=== PATIENT | male | born 1950 | race Caucasian/White ===

== ENCOUNTER 2017-06-04 06:22 | Emergency (ER) | payer OTHER ==
[~2017-06-04] VITALS: Ht 167.6 cm; Wt 94.1 kg
[~2017-06-04 06:22] MED LIST: ADVAIR 250/501 DISK IH; ATORVASTATIN CA20 MG PO; BUTALB-APAP-CA1 EACH PO; CELEXA40 MG PO; DOCUSATE SODIU100 MG PO; EXALGO8 MG PO; GRALISE300 MG PO; LIPITOR80 MG PO; LISINOPRIL40 MG PO; METOPROLOL SUCC25 MG PO; NORVASC10 MG PO; OXYCODONE HCL10 MG PO; OXYCODONE HCL15 MG PO; OXYCODONE15 MG PO; PRAVASTATIN SOD80 MG PO; PREVACID30 MG PO; PRINIVIL20 MG PO; PriLOSEC PO; Proventil,Ventolin H IH; SENNA-TIME S T1 EACH PO; SERTRALINE HCL50 MG; SERTRALINE HCL50 MG PO; SPIRIVA1 INHALATI IH; TYLENOL ARTHRI650 MG PO; VENTOLIN HFA18 GM IH
[2017-06-04 08:10] LABS: BASOPHIL COUNT 0.1 K/uL (0-0.1); EOSINOPHIL (%) 2.7 % (0-5); EOSINOPHIL COUNT 0.2 K/uL (0-0.3); HEMATOCRIT 36.7 % (38.0-50.0); IMMATURE GRANULOCYTE (%) 1.1 % (0.0-0.7); IMMATURE GRANULOCYTE COUNT 0.1 K/uL; INSTRUMENT ABS NEUTROPHIL CT 4.6 K/uL; LYMPHOCYTE COUNT 1.3 K/uL (1.0-2.8); MCH 31.8 PG (29.0-34.0); MCHC 31.9 G/DL (30.0-36.0); MCV 99.7 FL (86-99); MEAN PLAT.VOLUME 10.7 uM^3 (9.0-12.4); MONOCYTE (%) 11.6 % (3-12); MONOCYTE COUNT 0.8 K/uL (0-0.8); NEUTROPHIL (%) 64.9 % (45-76); NEUTROPHIL COUNT 4.6 K/uL (1.8-6.4); NRBC (%) 0.3 /100 WBC (0-0); PLATELET COUNT 304 K/uL (156-360); RBC DIS.WIDTH-CV 14.3 % (11.8-14.6); RBC DIS.WIDTH-SD 51.7 % (39-53); RED BLOOD COUNT 3.68 M/uL (4.00-5.50); WHITE BLOOD COUNT 7.1 K/uL (4.1-10.2)
[2017-06-04 08:21] LABS: CHLORIDE 105 mEq/L (99-109); POTASSIUM 3.8 mEq/L (3.7-5.4); SODIUM 139 mEq/L (136-147)
[2017-06-04 08:23] LABS: GLUCOSE 136 mg/dL (70-99)
[2017-06-04 08:24] LABS: ANION GAP 8 MEQ/L (2-14)
[2017-06-04 08:25] LABS: TOTAL BILIRUBIN 0.4 mg/dL (0.0-1.0)
[2017-06-04 08:26] LABS: ALKALINE PHOSPHATASE 84 IU/L (3-129)
[2017-06-04 08:27] LABS: GFR ESTIMATE (CALCULATED) > 59 mL/min/
[2017-06-04 08:28] LABS: UREA NITROGEN (BUN) 16 mg/dL (9-23)
[2017-06-04] MEDS ORDERED: PREDNISONE20 MG PO (09:10)
[2017-06-04] MEDS ORDERED: CLARITIN10 M3 PO (09:10)
[2017-06-04] MEDS ORDERED: LORATADINE10 M2 PO (09:24)
[2017-06-04 09:38] VITALS: BP 138/99
== END 2017-06-04 09:39 | disposition home or self-care (01) ==
LOC: EME 06:22
PROVIDERS: Physician Assistant
DX: J30.2 Other seasonal allergic rhinitis (principal); J42 Unspecified chronic bronchitis; K21.9 Gastro-esophageal reflux disease without esophagitis; I10 Essential (primary) hypertension; G47.30 Sleep apnea, unspecified; F41.9 Anxiety disorder, unspecified; F32.9 Major depressive disorder, single episode, unspecified; E78.5 Hyperlipidemia, unspecified; J44.9 Chronic obstructive pulmonary disease, unspecified; Z79.891 Long term (current) use of opiate analgesic; Z87.891 Personal history of nicotine dependence
CPT/HCPCS: 71020; 80053; 83880; 85025; 94640; 99281; 99284; J7512

== ENCOUNTER 2017-12-30 21:50 | Emergency (ER) | payer OTHER ==
[~2017-12-30] VITALS: Ht 167.6 cm; Wt 98.0 kg
[~2017-12-30 21:50] MED LIST changes: +CLARITIN10 M3 PO; +LORATADINE10 M2 PO; +PREDNISONE20 MG PO
[2017-12-30 22:21] LABS: HEMATOCRIT 31.7 % (38.0-50.0); HEMOGLOBIN 9.7 G/DL (12.5-16.6); MCH 27.2 PG (29.0-34.0); MCHC 30.6 G/DL (30.0-36.0); MCV 88.8 FL (86-99); PLATELET COUNT 363 K/uL (156-360); RBC DIS.WIDTH-CV 14.9 % (11.8-14.6); RBC DIS.WIDTH-SD 48.6 % (39-53); RED BLOOD COUNT 3.57 M/uL (4.00-5.50); WHITE BLOOD COUNT 7.8 K/uL (4.1-10.2)
[2017-12-30 22:43] LABS: CHLORIDE 107 mEq/L (99-109); POTASSIUM 4.2 mEq/L (3.7-5.4); SODIUM 142 mEq/L (136-147)
[2017-12-30 22:44] LABS: GLUCOSE 103 mg/dL (70-99)
[2017-12-30 22:45] LABS: TROP-I INTERPRETATION NEGATIVE; TROPONIN-I < 0.01 ng/mL (0.0-0.30)
[2017-12-30 22:48] LABS: CREATININE 1.3 mg/dL (0.6-1.3); GFR ESTIMATE (CALCULATED) 59 mL/min/ (58.99-99999)
[2017-12-30 22:49] LABS: UREA NITROGEN (BUN) 15 mg/dL (9-23)
[2017-12-30 22:53] LABS: ALBUMIN 4.3 g/dL (3.2-4.8)
[2017-12-30 22:58] LABS: TOTAL BILIRUBIN 0.3 mg/dL (0.0-1.0)
[2017-12-30 22:59] LABS: ALKALINE PHOSPHATASE 91 IU/L (3-129)
[2017-12-30 23:01] LABS: AST (GOT) 15 IU/L (2-34); DIRECT BILIRUBIN 0.1 mg/dL (0.0-0.3)
[2017-12-30 23:02] LABS: ALT (GPT) 16 IU/L (3-49); LIPASE 26 U/L (1.0-51.0)
[2017-12-31] MEDS ORDERED: SPIRIVA1 INHALATI IH (00:34)
[2017-12-31] MEDS ORDERED: GRALISE600 MG PO (00:35)
[2017-12-31] MEDS ORDERED: LISINOPRIL40 MG PO (00:35)
[2017-12-31] MEDS ORDERED: TOPROL XL25 MG PO (00:35)
[2017-12-31] MEDS ORDERED: SERTRALINE HCL100 MG PO (00:36)
[2017-12-31] MEDS ORDERED: LANSOPRAZOLE30 MG PO (00:36)
[2017-12-31] MEDS ORDERED: LIDODERM 5% P1 PATCH TD (00:36)
[2017-12-31] MEDS ORDERED: SINGULAIR10 MG PO (00:37)
[2017-12-31] MEDS ORDERED: ADVAIR 500/501 DISK IH (00:37)
[2017-12-31 01:51] LABS: TROP-I INTERPRETATION NEGATIVE; TROPONIN-I < 0.01 ng/mL (0.0-0.30)
[2017-12-31 03:08] VITALS: BP 133/66
[2017-12-31 03:09] LABS: IRON 19 MCG/DL (35-150)
[2017-12-31 07:58] LABS: FERRITIN 14 NG/ML (22-322)
== END 2017-12-31 03:09 | disposition home or self-care (01) ==
LOC: EME 21:50
PROVIDERS: Hospitalist
DX: D50.9 Iron deficiency anemia, unspecified (principal); I10 Essential (primary) hypertension; G89.29 Other chronic pain; M54.9 Dorsalgia, unspecified; G62.9 Polyneuropathy, unspecified; J44.1 Chronic obstructive pulmonary disease with (acute) exacerbation; K21.9 Gastro-esophageal reflux disease without esophagitis; E78.5 Hyperlipidemia, unspecified; F10.10 Alcohol abuse, uncomplicated; F32.9 Major depressive disorder, single episode, unspecified; F41.9 Anxiety disorder, unspecified; G47.30 Sleep apnea, unspecified; M19.90 Unspecified osteoarthritis, unspecified site; Z88.5 Allergy status to narcotic agent
CPT/HCPCS: 71046; 80048; 80076; 82728; 83540; 83690; 83880; 84484; 85027; 93005; 94640; 99281; 99285; S0028